=== PATIENT | male | born 1970 | race Caucasian/White ===

== ENCOUNTER 2020-08-29 12:32 | Inpatient (IN) | payer OTHER ==
--- NOTE | 2020-08-29 13:20 | BHS.RME ---
2019 N Coronavirus Screen - COVID-19 Screening Questions Dx of COVID-19 or had a positive test in the last 4 weeks?: No Contact with known/suspected COVID patient in last 14 days?: No Any of these symptoms or contact with someone who has?: None Traveled domestically/internationally in the last 14 days?: Yes Screen score: 1 Screen result: Positive Substance Use & Tx History - Substance Use History Heroin Substance amount: 1 bag Frequency of use: Daily Substance route: Inhalation (ex: sniffing or snorting) Date of Last Use: 08/29/20 (started age 14) Xanax Substance amount: 2 mg 1.5 tabs Frequency of use: Daily Substance route: Oral Date of Last Use: 08/29/20 (started age 47) Alcohol Substance amount: six pack beers Frequency of use: Daily Substance route: Oral Date of Last Use: 08/29/20 (started age 20) Physical/Psych/Mental Status - Behavior General Behavior: Decreased activity Eye Contact: Normal - Cooperativeness Cooperativeness: Cooperative - Thinking Thought Processes: Tight, Logical, Goal Directed - Physical Health Problems Is patient presently having any pain?: No Does patient presently have any injuries (include location): No Does patient currently have a fever: No Is patient : No CIWA Nausea/Vomitin-Mild Nausea/No Vomiting Muscle Tremors: 2 Anxiety: 2 Agitation: 2 Paroxysmal Sweats: 2 Orientation: 1-Uncertain about Date Tacttile Disturbances: 0-None Auditory Disturbances: 0-None Visual Disturbances: 0-None Headache: 0-None Present (not in full withdrawals due to use of alcohol and xanax today) CIWA-Ar Total Score: 10
[2020-08-29 19:12] VITALS: BMI 26.7
--- NOTE | 2020-08-29 19:13 | HP ---
CIWA Score Nausea/Vomitin-No Nausea/No Vomiting Muscle Tremors: 3 Anxiety: 3 Agitation: 2 Paroxysmal Sweats: 3 (Increased facial moisture) Orientation: 1-Uncertain about Date Tacttile Disturbances: 0-None Auditory Disturbances: 0-None Visual Disturbances: 0-None Headache: 0-None Present (not in full withdrawals due to use of alcohol and xanax today) CIWA-Ar Total Score: 12 - Admission Criteria [facility] Guidelines: Admission for Medically Managed Detox: Requires at least one of the followin. CIWA greater than 12 2. Seizures within the past 24 hours 3. Delirium tremens within the past 24 hours 4. Hallucinations within the past 24 hours 5. Acute intervention needed for co occurring medical disorder 6. Acute intervention needed for co occurring psychiatric disorder 7. Severe withdrawal that cannot be handled at a lower level of care (continued vomiting, continued diarrhea, abnormal vital signs) requiring intravenous medication and/or fluids 8. Patient presents the following: CIWA greater than 12 Admission Criteria Met: Admission criteria met Admission ROS [facility] Chief Complaint: "Here to get off benzo and change my life around" Allergies/Adverse Reactions: Allergies Allergy/AdvReac Type Severity Reaction Status Date / Time No Known Allergies Allergy Verified 08/29/20 19:55 History of Present Illness: 49 yo presents w/ opioid withdrawal seeking detox. Denies hx seizures, blackouts or overdoses. RENAY: 0.0 UTox: +KIMMIE/FYL/MOP/MTD/BZO Alcohol use began at age 20. Currently drinking down to 1 six-pack 12 oz beers. Benzo use began at age 47. 2-4 mg/day. Heroin use began at age 14. Uses about 1 bag/day/nasal. Currently enrolled in [facility]. Methadone dose = 110 mg/day. States last medicated today. Has a Narcan kit @ home. Two THB in security. Nicotine use began at age 13. Smokes 1/2 PPD. States can stay full 6 days for detox. PMHx: Hx: Hep C (Rx'd); MHHx: Anxiety. Bipolar. Does not see a Psychiatrist. Denies thoughts of harming self or others. SHx: Lives w/ a friend. Unemployed. Denies legal issues. Search Terms: Braden Okeefe, 1970 Search Date: 08/29/2020 19:18:03 PM The Drug Utilization Report below displays all of the controlled substance prescriptions, if any, that your patient has filled in the last twelve months. The information displayed on this report is compiled from pharmacy submissions to the Department, and accurately reflects the information as submitted by the pharmacies. This report was requested by: Key Vega | Reference #: [id number] There are no results for the search terms that you entered. Exam Limitations: No Limitations - Ebola screening Have you traveled outside of the country in the last 21 days: No (Denies COVID exposure) Have you had contact with anyone from an Ebola affected area: No Have you been sick,other than usual withdrawal symptoms: No Do you have a fever: No - Review of Systems Constitutional: Chills, Diaphoresis, Weight Stable EENT: reports: Blurred Vision, Dental Problems (Missing teeth, poor dentition) Respiratory: reports: No Symptoms reported Cardiac: reports: No Symptoms Reported GI: reports: Nausea : reports: No Symptoms Reported Musculoskeletal: reports: Back Pain (Chronic intermitent low back pain. No pain @ this time. Triggered by heavy lifting, standing too long. Improves w/ rest and relaxation.) Integumentary: reports: No Symptoms Reported Neuro: reports: Tremors Endocrine: reports: Increased Thirst Hematology: reports: No Symptoms Reported Psychiatric: reports: Judgement Intact, Mood/Affect Appropiate, Anxious Patient History - PPD History Previous Implant?: Yes Documented Results: Negative w/o proof Implanted On Prior [facility] Admission?: No PPD to be Administered?: Yes - Smoking Cessation Smoking history: Current every day smoker Have you smoked in the past 12 months: Yes Aproximately how many cigarettes per day: 10 Hx Chewing Tobacco Use: No Initiated information on smoking cessation: Yes 'Breaking Loose' booklet given: 08/29/20 - Substance & Tx. History Hx Alcohol Use: Yes Hx Substance Use: Yes Substance Use Type: Alcohol, Cocaine, Heroin, Opiates, Tranquilizers (Benzo) Hx Substance Use Treatment: Yes (detox, rehab, long-term, currently MMTP) Admission Physical Exam BHS - Physical General Appearance: Yes: Nourished, Mild Distress, Tremorous, Sweating (In creased facial moisture), Anxious HEENTM: Yes: EOMI, Hearing grossly Normal, Normal ENT Inspection, Normocephalic, Normal Voice, ARMANDO, Pharynx Normal Respiratory: Yes: Lungs Clear, Normal Breath Sounds, No Respiratory Distress Neck: Yes: No masses,lesions,Nodules, Supple Breast: Yes: Breast Exam Deferred Cardiology: Yes: Regular Rhythm, Regular Rate (HR: 66), S1, S2 Abdominal: Yes: Non Tender, Flat, Soft, Increased Bowel Sounds Genitourinary: Yes: Within Normal Limits Back: Yes: Normal Inspection Musculoskeletal: Yes: full range of Motion, Gait Steady Extremities: Yes: Normal Capillary Refill, Tremors, Other (Spider veins BLE) Neurological: Yes: superintendent production II-XII NML intact, Alert, Motor Strength 5/5, Normal Mood/Affect, Normal Response Integumentary: Yes: Normal Color, Warm, Moist (Increased facial moisture) Lymphatic: Yes: Within Normal Limits - Diagnostic (1) Spider veins of both lower extremities Current Visit: Yes Status: Chronic (2) Anxiolytic withdrawal without complication Current Visit: Yes Status: Acute (3) Alcohol dependence with withdrawal, uncomplicated Current Visit: Yes Status: Acute (4) Methadone maintenance therapy patient Current Visit: Yes Status: Chronic (5) Cocaine dependence, uncomplicated Current Visit: Yes Status: Chronic (6) Nicotine dependence, unspecified, uncomplicated Current Visit: Yes Status: Chronic Qualifiers: Nicotine product type: cigarettes Qualified Code(s): F17.210 - Nicotine dependence, cigarettes, uncomplicated (7) History of hepatitis C Current Visit: Yes Status: Chronic Comment: States treated. Cleared for Admission [facility] - Detox or Rehab [facility] Level of Care: Medically Managed Detox Regimen/Protocol: Librium Claeared for Rehab Admission: No Inpatient Rehab Admission - Rehab Decision to Admit Inpatient rehab admission?: No
[2020-08-29] MEDS ORDERED: NICOTINE POLACRILEX 2 MG GUM BUC PRN (20:04)
[2020-08-29] MEDS ORDERED: ACETAMINOPHEN 325 MG TABLET (FP) PO PRN ×2 (20:04)
[2020-08-29] MEDS ORDERED: METHOCARBAMOL 500 MG TABLET PO PRN (20:04)
[2020-08-29] MEDS ORDERED: chlordiazePOXIDE HCL 25 MG CAPSULE PO PRN (20:04)
[2020-08-29] MEDS ORDERED: BISMUTH SUBSALICYLATE 524 MG/30 ML UD PO PRN (20:04)
[2020-08-29] MEDS ORDERED: IBUPROFEN 400 MG TABLET (FP) PO PRN (20:04)
[2020-08-29] MEDS ORDERED: MAGNESIUM CITRATE 300 ML BOTTLE PO PRN (20:04)
[2020-08-29] MEDS ORDERED: MAG HYDROX/AL HYDROX/SIMETH 30 ML UNIT-DOSE CUP PO PRN (20:04)
[2020-08-29] MEDS ORDERED: MAGNESIUM HYDROX 2400MG/30ML ORAL SUSPENSION 30 ML CUP PO PRN (20:04)
[2020-08-29] MEDS ORDERED: MENTHOL/PHENOL 1 EACH UD MM PRN (20:04)
[2020-08-29] MEDS ORDERED: ONDANSETRON *ODT* 4 MG TABLET SL PRN (20:04)
[2020-08-29] MEDS ORDERED: chlordiazePOXIDE HCL 10 MG CAPSULE PO ONE (21:00)
[2020-08-29] MEDS: THIAMINE HCL 100 MG TABLET (FP) PO SCH (22:21)
[2020-08-29] MEDS: chlordiazePOXIDE HCL 25 MG CAPSULE PO SCH (22:21)
[2020-08-29] MEDS: MELATONIN 5 MG TABLETS PO SCH (22:22)
[2020-08-30] MEDS ORDERED: METHADONE HCL 40 MG DISPERSABLE TABLET ONE (04:02)
[2020-08-30] MEDS ORDERED: METHADONE HCL 10 MG TABLET ONE (04:02)
[2020-08-30] MEDS: METHADONE 80 MG, METHADONE 30 MG PO SCH (05:19)
[2020-08-30] MEDS: chlordiazePOXIDE HCL 25 MG CAPSULE PO SCH ×4 (05:20→22:05)
[2020-08-30] MEDS ORDERED: METHADONE HCL 40 MG DISPERSABLE TABLET PO SCH (06:00)
[2020-08-30 09:04] LABS: HEMATOCRIT 38.8 % (35.4-49); HEMOGLOBIN 13.3 GM/dL (11.7-16.9); MCH 30.4 pg (25.7-33.7); MCHC 34.2 g/dl (32.0-35.9); MEAN CELL VOLUME 88.8 fl (80-96); MEAN PLT VOLUME 10.7 fl (7.5-11.1); PLATELET COUNT 125 K/MM3 (134-434); RBC 4.37 M/mm3 (4.00-5.60); RDW 12.8 % (11.9-15.9); WHITE BLOOD COUNT 4.3 K/mm3 (4.0-10.0)
[2020-08-30 09:07] LABS: CALCIUM 8.8 mg/dL (8.5-10.1)
[2020-08-30 09:08] LABS: ALBUMIN 3.4 g/dl (3.4-5.0); BLOOD UREA NITROGEN 11.7 mg/dL (7-18)
[2020-08-30 09:11] LABS: CREATININE 0.8 mg/dL (0.55-1.3)
[2020-08-30 09:12] LABS: BILIRUBIN,TOTAL 0.4 mg/dL (0.2-1); TOT PROT 8.2 g/dl (6.4-8.2)
[2020-08-30] MEDS: NICOTINE 14 MG/24 HOURS TOPICAL PATCH TD SCH (11:19)
[2020-08-30] MEDS: PRENATAL VITAMINS W/ FOLIC ACID TABLET (FP) PO SCH (11:19)
--- NOTE | 2020-08-30 16:41 | PN ---
[facility] CIWA - CIWA Score Nausea/Vomitin-No Nausea/No Vomiting Muscle Tremors: 2 Anxiety: 3 Agitation: 3 Paroxysmal Sweats: 3 Orientation: 0-Oriented Tacttile Disturbances: 0-None Auditory Disturbances: 0-None Visual Disturbances: 0-None Headache: 0-None Present CIWA-Ar Total Score: 11 S Progress Note (SOAP) Subjective: Anxious, Restless, Tremors, Sweating. Objective: Patient A & O X 3, Observed Ambulating on Detox Unit Unassisted. In No Acute Distress. 08/30/20 16:45 Vital Signs Temperature 97.3 F L 08/30/20 13:13 Pulse Rate 68 08/30/20 13:13 Respiratory Rate 16 08/30/20 13:13 Blood Pressure 100/67 08/30/20 13:13 O2 Sat by Pulse Oximetry (%) 95 08/30/20 13:13 Laboratory Tests 08/30/20 08/30/20 08/30/20 07:05 07:05 07:05 WBC 4.3 RBC 4.37 Hgb 13.3 Hct 38.8 MCV 88.8 MCH 30.4 MCHC 34.2 RDW 12.8 Plt Count 125 L MPV 10.7 Sodium 140 Potassium 4.0 Chloride 103 Carbon Dioxide 33 H Anion Gap 4 L BUN 11.7 Creatinine 0.8 Est GFR (CKD-EPI)AfAm 121.57 Est GFR (CKD-EPI)NonAf 104.89 Random Glucose 90 Calcium 8.8 Total Bilirubin 0.4 AST 75 H ALT 78 H Alkaline Phosphatase 82 Total Protein 8.2 Albumin 3.4 Syphilis Serology Non-reactive Lab Results noted. Assessment: 08/30/20 16:45 WITHDRAWAL SYMPTOMS. THROMBOCYTOPENIA. ELEVATED AST LEVEL. ELEVATED ALT LEVEL. 08/30/20 16:46 Plan: Continue Detox.
--- NOTE | 2020-08-30 18:34 | EKG ---
Test Reason : Blood Pressure : / mmHG Vent. Rate : 062 BPM Atrial Rate : 062 BPM P-R Int : 128 ms QRS Dur : 094 ms QT Int : 474 ms P-R-T Axes : 057 066 054 degrees QTc Int : 481 ms NORMAL SINUS RHYTHM PROLONGED QT ABNORMAL ECG NO PREVIOUS ECGS AVAILABLE Confirmed by MD MIMA, DIPIKA ([id number]) on 08/30/2020 6:34:11 PM Referred By: Confirmed By:DIPIKA GUILLERMO MD
[2020-08-30] MEDS: THIAMINE HCL 100 MG TABLET (FP) PO SCH (22:04)
[2020-08-30] MEDS: MELATONIN 5 MG TABLETS PO SCH (22:05)
[2020-08-31] MEDS ORDERED: METHADONE HCL 10 MG TABLET ONE (04:13)
[2020-08-31] MEDS ORDERED: METHADONE HCL 40 MG DISPERSABLE TABLET ONE (04:13)
[2020-08-31] MEDS: chlordiazePOXIDE HCL 25 MG CAPSULE PO SCH ×4 (05:19→22:02)
[2020-08-31] MEDS: METHADONE 80 MG, METHADONE 30 MG PO SCH (05:19)
[2020-08-31] MEDS: PRENATAL VITAMINS W/ FOLIC ACID TABLET (FP) PO SCH (10:13)
[2020-08-31] MEDS: NICOTINE 14 MG/24 HOURS TOPICAL PATCH TD SCH (10:13)
--- NOTE | 2020-08-31 11:35 | PN ---
[facility] CIWA - CIWA Score Nausea/Vomitin-No Nausea/No Vomiting Muscle Tremors: 2 Anxiety: 3 Agitation: 2 Paroxysmal Sweats: 2 Orientation: 0-Oriented Tacttile Disturbances: 0-None Auditory Disturbances: 0-None Visual Disturbances: 0-None Headache: 0-None Present CIWA-Ar Total Score: 9 S Progress Note (SOAP) Subjective: Complaints of tremors, anxiety, sweats and agitation. Objective: 08/31/20 11:35 Vital Signs 08/31/20 08/31/20 06:12 08:55 Temperature 97.1 F L 97.5 F L Pulse Rate 62 80 Respiratory 18 18 Rate Blood Pressure 108/57 L 110/66 O2 Sat by Pulse 97 97 Oximetry (%) Laboratory Last Values WBC 4.3 K/mm3 (4.0-10.0) 08/30/20 07:05 RBC 4.37 M/mm3 (4.00-5.60) 08/30/20 07:05 Hgb 13.3 GM/dL (11.7-16.9) 08/30/20 07:05 Hct 38.8 % (35.4-49) 08/30/20 07:05 MCV 88.8 fl (80-96) 08/30/20 07:05 MCH 30.4 pg (25.7-33.7) 08/30/20 07:05 MCHC 34.2 g/dl (32.0-35.9) 08/30/20 07:05 RDW 12.8 % (11.9-15.9) 08/30/20 07:05 Plt Count 125 K/MM3 (134-434) L 08/30/20 07:05 MPV 10.7 fl (7.5-11.1) 08/30/20 07:05 Sodium 140 mmol/L (136-145) 08/30/20 07:05 Potassium 4.0 mmol/L (3.5-5.1) 08/30/20 07:05 Chloride 103 mmol/L (98-107) 08/30/20 07:05 Carbon Dioxide 33 mmol/L (21-32) H 08/30/20 07:05 Anion Gap 4 MMOL/L (8-16) L 08/30/20 07:05 BUN 11.7 mg/dL (7-18) 08/30/20 07:05 Creatinine 0.8 mg/dL (0.55-1.3) 08/30/20 07:05 Est GFR (CKD-EPI)AfAm 121.57 08/30/20 07:05 Est GFR (CKD-EPI)NonAf 104.89 08/30/20 07:05 Random Glucose 90 mg/dL (74-106) 08/30/20 07:05 Calcium 8.8 mg/dL (8.5-10.1) 08/30/20 07:05 Total Bilirubin 0.4 mg/dL (0.2-1) 08/30/20 07:05 AST 75 U/L (15-37) H 08/30/20 07:05 ALT 78 U/L (13-61) H 08/30/20 07:05 Alkaline Phosphatase 82 U/L (45-117) 08/30/20 07:05 Total Protein 8.2 g/dl (6.4-8.2) 08/30/20 07:05 Albumin 3.4 g/dl (3.4-5.0) 08/30/20 07:05 Syphilis Serology Non-reactive (NONREACTIVE) 08/30/20 07:05 COVID-19 ([facility]) Not detected (Not Detected) 08/29/20 20:45 Labs noted. Assessment: 08/31/20 11:35 Alert and oriented x3, in no acute respiratory distress. Full ROM, ambulating in unit without any assistance. Skin warm to touch without lesions. Withdrawal symptoms. Plan: Continue detox protocol.
[2020-08-31] MEDS: THIAMINE HCL 100 MG TABLET (FP) PO SCH (22:02)
[2020-08-31] MEDS: MELATONIN 5 MG TABLETS PO SCH (22:02)
[2020-09-01] MEDS ORDERED: chlordiazePOXIDE HCL 10 MG CAPSULE PO PRN
[2020-09-01] MEDS: chlordiazePOXIDE HCL 10 MG CAPSULE PO SCH ×4 (05:35→22:02)
[2020-09-01] MEDS ORDERED: METHADONE HCL 10 MG TABLET PO SCH (07:45)
[2020-09-01] MEDS ORDERED: METHADONE HCL 10 MG TABLET ONE (08:42)
[2020-09-01] MEDS ORDERED: METHADONE HCL 40 MG DISPERSABLE TABLET ONE (08:42)
[2020-09-01] MEDS: METHADONE 80 MG, METHADONE 30 MG PO SCH (08:45)
--- NOTE | 2020-09-01 09:55 | PN ---
[facility] CIWA - CIWA Score Nausea/Vomitin-Mild Nausea/No Vomiting Muscle Tremors: 2 Anxiety: 2 Agitation: 2 Paroxysmal Sweats: No Perspiration Orientation: 0-Oriented Tacttile Disturbances: 1-Very Mild Itch/Numbness Auditory Disturbances: 0-None Visual Disturbances: 0-None Headache: 2-Mild CIWA-Ar Total Score: 10 S Progress Note (SOAP) Subjective: alert,irritable,anxious,interrupted sleep,tremor,aching pain Objective: 09/01/20 09:54 Vital Signs Temperature 97.1 F L 09/01/20 08:32 Pulse Rate 81 09/01/20 08:32 Respiratory Rate 20 09/01/20 08:32 Blood Pressure 111/66 09/01/20 08:32 O2 Sat by Pulse Oximetry (%) 97 09/01/20 08:32 Laboratory Last Values WBC 4.3 K/mm3 (4.0-10.0) 08/30/20 07:05 RBC 4.37 M/mm3 (4.00-5.60) 08/30/20 07:05 Hgb 13.3 GM/dL (11.7-16.9) 08/30/20 07:05 Hct 38.8 % (35.4-49) 08/30/20 07:05 MCV 88.8 fl (80-96) 08/30/20 07:05 MCH 30.4 pg (25.7-33.7) 08/30/20 07:05 MCHC 34.2 g/dl (32.0-35.9) 08/30/20 07:05 RDW 12.8 % (11.9-15.9) 08/30/20 07:05 Plt Count 125 K/MM3 (134-434) L 08/30/20 07:05 MPV 10.7 fl (7.5-11.1) 08/30/20 07:05 Sodium 140 mmol/L (136-145) 08/30/20 07:05 Potassium 4.0 mmol/L (3.5-5.1) 08/30/20 07:05 Chloride 103 mmol/L (98-107) 08/30/20 07:05 Carbon Dioxide 33 mmol/L (21-32) H 08/30/20 07:05 Anion Gap 4 MMOL/L (8-16) L 08/30/20 07:05 BUN 11.7 mg/dL (7-18) 08/30/20 07:05 Creatinine 0.8 mg/dL (0.55-1.3) 08/30/20 07:05 Est GFR (CKD-EPI)AfAm 121.57 08/30/20 07:05 Est GFR (CKD-EPI)NonAf 104.89 08/30/20 07:05 Random Glucose 90 mg/dL (74-106) 08/30/20 07:05 Calcium 8.8 mg/dL (8.5-10.1) 08/30/20 07:05 Total Bilirubin 0.4 mg/dL (0.2-1) 08/30/20 07:05 AST 75 U/L (15-37) H 08/30/20 07:05 ALT 78 U/L (13-61) H 08/30/20 07:05 Alkaline Phosphatase 82 U/L (45-117) 08/30/20 07:05 Total Protein 8.2 g/dl (6.4-8.2) 08/30/20 07:05 Albumin 3.4 g/dl (3.4-5.0) 08/30/20 07:05 Syphilis Serology Non-reactive (NONREACTIVE) 08/30/20 07:05 COVID-19 ([facility]) Not detected (Not Detected) 08/29/20 20:45 Assessment: 09/01/20 09:54 withdrawal symptom Plan: continue detox librium regimen
[2020-09-01] MEDS: NICOTINE 14 MG/24 HOURS TOPICAL PATCH TD SCH (10:08)
[2020-09-01] MEDS: PRENATAL VITAMINS W/ FOLIC ACID TABLET (FP) PO SCH (10:08)
[2020-09-01 10:12] LABS: PH,URINE 7.5 (5.0-8.0); URINE APPEARANCE CLEAR; URINE BILIRUBIN NEGATIVE (NEGATIVE); URINE COLOR YELLOW; URINE GLUCOSE (UA) NEGATIVE (NEGATIVE); URINE KETONE NEGATIVE (NEGATIVE); URINE LEUK ESTERASE NEGATIVE (NEGATIVE); URINE NITRITE NEGATIVE (NEGATIVE); URINE PROTEIN NEGATIVE (NEGATIVE)
[2020-09-01] MEDS: MELATONIN 5 MG TABLETS PO SCH (22:02)
[2020-09-01] MEDS: THIAMINE HCL 100 MG TABLET (FP) PO SCH (22:02)
[2020-09-02] MEDS ORDERED: chlordiazePOXIDE HCL 10 MG CAPSULE PO SCH (05:00)
[2020-09-02] MEDS ORDERED: METHADONE HCL 40 MG DISPERSABLE TABLET ONE (05:02)
[2020-09-02] MEDS ORDERED: METHADONE HCL 10 MG TABLET ONE (05:02)
[2020-09-02] MEDS: METHADONE 80 MG, METHADONE 30 MG PO SCH (05:24)
--- NOTE | 2020-09-02 09:45 | PN ---
[facility] CIWA - CIWA Score Nausea/Vomitin-No Nausea/No Vomiting Muscle Tremors: None Anxiety: 1-Mildly Anxious Agitation: 0-Normal Activity Paroxysmal Sweats: No Perspiration Orientation: 0-Oriented Tacttile Disturbances: 0-None Auditory Disturbances: 0-None Visual Disturbances: 0-None Headache: 0-None Present CIWA-Ar Total Score: 1 S Progress Note (SOAP) Subjective: alert,irritable,anxious,interrupted sleep,aching pain Objective: 09/02/20 09:44 Vital Signs Temperature 97.5 F L 09/02/20 08:47 Pulse Rate 71 09/02/20 08:47 Respiratory Rate 19 09/02/20 08:47 Blood Pressure 106/65 09/02/20 08:47 O2 Sat by Pulse Oximetry (%) 99 09/02/20 08:47 Assessment: 09/02/20 09:44 withdrawal symptom Plan: continue detox librium regimen,continue methadone maintenance 110 mgs po daily,discharge in am
[2020-09-02] MEDS: PRENATAL VITAMINS W/ FOLIC ACID TABLET (FP) PO SCH (10:10)
[2020-09-02] MEDS: NICOTINE 14 MG/24 HOURS TOPICAL PATCH TD SCH (10:10)
--- NOTE | 2020-09-02 15:06 | PN ---
[facility] Progress Note Note: patient would like to go home today instead of tomorrow stable for discharge Vital Signs Temperature 97.5 F L 09/02/20 08:47 Pulse Rate 71 09/02/20 08:47 Respiratory Rate 19 09/02/20 08:47 Blood Pressure 106/65 09/02/20 08:47 O2 Sat by Pulse Oximetry (%) 99 09/02/20 08:47 follow up with after care program methadone maintenance clinic
--- NOTE | 2020-09-02 15:08 | DS ---
[facility] Detox Discharge Summary Admission Date: 08/29/20 Discharge Date: 09/02/20 - History Present History: Alcohol Dependence, Cocaine Dependence, Sedative Dependence, MMTP - Physical Exam Results Vital Signs: Vital Signs Temperature 97.5 F L 09/02/20 08:47 Pulse Rate 71 09/02/20 08:47 Respiratory Rate 19 09/02/20 08:47 Blood Pressure 106/65 09/02/20 08:47 O2 Sat by Pulse Oximetry (%) 99 09/02/20 08:47 - Medication Discharge Medications: Ambulatory Orders NK [No Known Home Medication] 08/29/20
--- NOTE | 2020-09-02 15:15 | DS ---
[facility] Detox Discharge Summary Admission Date: 08/29/20 - History Present History: Alcohol Dependence, Cocaine Dependence, Sedative Dependence, MMTP Additional Comments: alert,oriented x3 oriented x 3 lung clear on auscultation bilaterally abdomen soft,no pain,no tenderness no pain in the legs no withdrawal symptom stable for discharge declined rehab follow up with after care program methadone maintenance clinic as arrangement total time of discharge spending 35 minutes Pertinent Past History: varicose vein both legs hepatitis c nicotine dependence - Physical Exam Results Vital Signs: Vital Signs Temperature 97.5 F L 09/02/20 08:47 Pulse Rate 71 09/02/20 08:47 Respiratory Rate 19 09/02/20 08:47 Blood Pressure 106/65 09/02/20 08:47 O2 Sat by Pulse Oximetry (%) 99 09/02/20 08:47 Pertinent Admission Physical Exam Findings: withdrawal signs and symptom Laboratory Last Values WBC 4.3 K/mm3 (4.0-10.0) 08/30/20 07:05 RBC 4.37 M/mm3 (4.00-5.60) 08/30/20 07:05 Hgb 13.3 GM/dL (11.7-16.9) 08/30/20 07:05 Hct 38.8 % (35.4-49) 08/30/20 07:05 MCV 88.8 fl (80-96) 08/30/20 07:05 MCH 30.4 pg (25.7-33.7) 08/30/20 07:05 MCHC 34.2 g/dl (32.0-35.9) 08/30/20 07:05 RDW 12.8 % (11.9-15.9) 08/30/20 07:05 Plt Count 125 K/MM3 (134-434) L 08/30/20 07:05 MPV 10.7 fl (7.5-11.1) 08/30/20 07:05 Sodium 140 mmol/L (136-145) 08/30/20 07:05 Potassium 4.0 mmol/L (3.5-5.1) 08/30/20 07:05 Chloride 103 mmol/L (98-107) 08/30/20 07:05 Carbon Dioxide 33 mmol/L (21-32) H 08/30/20 07:05 Anion Gap 4 MMOL/L (8-16) L 08/30/20 07:05 BUN 11.7 mg/dL (7-18) 08/30/20 07:05 Creatinine 0.8 mg/dL (0.55-1.3) 08/30/20 07:05 Est GFR (CKD-EPI)AfAm 121.57 08/30/20 07:05 Est GFR (CKD-EPI)NonAf 104.89 08/30/20 07:05 Random Glucose 90 mg/dL (74-106) 08/30/20 07:05 Calcium 8.8 mg/dL (8.5-10.1) 08/30/20 07:05 Total Bilirubin 0.4 mg/dL (0.2-1) 08/30/20 07:05 AST 75 U/L (15-37) H 08/30/20 07:05 ALT 78 U/L (13-61) H 08/30/20 07:05 Alkaline Phosphatase 82 U/L (45-117) 08/30/20 07:05 Total Protein 8.2 g/dl (6.4-8.2) 08/30/20 07:05 Albumin 3.4 g/dl (3.4-5.0) 08/30/20 07:05 Urine Color Yellow 09/01/20 08:30 Urine Appearance Clear 09/01/20 08:30 Urine pH 7.5 (5.0-8.0) 09/01/20 08:30 Ur Specific [place] 1.009 (1.010-1.035) L 09/01/20 08:30 Urine Protein Negative (NEGATIVE) 09/01/20 08:30 Urine Glucose (UA) Negative (NEGATIVE) 09/01/20 08:30 Urine Ketones Negative (NEGATIVE) 09/01/20 08:30 Urine Blood Negative (NEGATIVE) 09/01/20 08:30 Urine Nitrite Negative (NEGATIVE) 09/01/20 08:30 Urine Bilirubin Negative (NEGATIVE) 09/01/20 08:30 Urine Urobilinogen 1.0 mg/dL (0.2-1.0) 09/01/20 08:30 Ur Leukocyte Esterase Negative (NEGATIVE) 09/01/20 08:30 Syphilis Serology Non-reactive (NONREACTIVE) 08/30/20 07:05 COVID-19 ([place]) Not detected (Not Detected) 08/29/20 20:45 HIV Ag/Ab Combo Qual Negative (NEGATIVE) 09/01/20 06:30 Vital Signs Temperature 97.5 F L 09/02/20 08:47 Pulse Rate 71 09/02/20 08:47 Respiratory Rate 19 09/02/20 08:47 Blood Pressure 106/65 09/02/20 08:47 O2 Sat by Pulse Oximetry (%) 99 09/02/20 08:47 - Treatment Hospital Course: Detox Protocol Followed, Detoxed Safely, Responded well, Discharged Condition Good Patient has Accepted a Rehab Referral to: declined - Medication Discharge Medications: Ambulatory Orders NK [No Known Home Medication] 08/29/20 - Diagnosis (1) Alcohol dependence with withdrawal, uncomplicated Current Visit: Yes Status: Acute (2) Anxiolytic withdrawal without complication Current Visit: Yes Status: Acute (3) Elevated alanine aminotransferase (ALT) level Current Visit: Yes Status: Acute (4) Elevated aspartate aminotransferase level Current Visit: Yes Status: Acute (5) Cocaine dependence, uncomplicated Current Visit: Yes Status: Chronic (6) History of hepatitis C Current Visit: Yes Status: Chronic (7) Methadone maintenance therapy patient Current Visit: Yes Status: Chronic (8) Nicotine dependence, unspecified, uncomplicated Current Visit: Yes Status: Chronic Qualifiers: Nicotine product type: cigarettes Qualified Code(s): F17.210 - Nicotine dependence, cigarettes, uncomplicated (9) Varicose veins of legs Current Visit: Yes Status: Acute - AMA Did Patient Leave Against Medical Advice: No
[2020-09-02 15:20] VITALS: BP 100/84; PULSE 79; TEMP 97.7
[2020-09-03] MEDS ORDERED: chlordiazePOXIDE HCL 10 MG CAPSULE PO ONE (05:00)
== END 2020-09-02 15:44 | disposition home or self-care (01) | DRG 773 ==
LOC: YASAS 12:32 → Y6N 19:56
PROVIDERS: ADMIT Allergy & Immunology; ATTEND Allergy & Immunology
PROC: HZ2ZZZZ Detoxification Services for Substance Abuse Treatment (ICD-10-PCS; principal; 2020-08-29)
DX: F10.230 Alcohol dependence with withdrawal, uncomplicated (principal); F13.230 Sedative, hypnotic or anxiolytic dependence with withdrawal, uncomplicated; F14.20 Cocaine dependence, uncomplicated; F11.20 Opioid dependence, uncomplicated; F17.210 Nicotine dependence, cigarettes, uncomplicated; F31.9 Bipolar disorder, unspecified; F41.9 Anxiety disorder, unspecified; D69.6 Thrombocytopenia, unspecified; I83.93 Asymptomatic varicose veins of bilateral lower extremities; B18.2 Chronic viral hepatitis C; R74.01 Elevation of levels of liver transaminase levels; Z56.0 Unemployment, unspecified
CPT/HCPCS: 36415; 80053; 81003; 85027; 86780; 87389; 93005; 93010; C9803; U0003